=== PATIENT | male | born 1945 | race Caucasian/White ===

== ENCOUNTER 2025-06-07 08:33 | Observation (INO) | payer MEDICARE, OTHER ==
[2025-06-07 08:48] LABS: Actual Bicarbonate (HCO3a) 20.8 mEq/L (22-28); Analyzer IN Cardio ER; Base Excess (BEa) -8.0 mEq/L (-2.0 to +3.0); CO2 Tension 57.4 mmHg (35.0-45.0); Calcium, Ionized (arterial) 1.09 mmol/L (1.12-1.30); Hematocrit-ABG 38 % (42.0-52.0); Hemoglobin (Hb) 12.8 g/dL (14.0-18.0); O2 Tension (PaO2), arterial 94.5 mmHg (> 70.0); Potassium - ABG Lab 3.53 mmol/L (3.70-5.30)
[2025-06-07 08:50] LABS: ALV-art Gradient 118.950 mmHg (0-20); Puncture Site Right Radial artery; pH, Arterial 7.178 (7.35-7.45)
[2025-06-07] MEDS ORDERED: Sodium Bicarb 50 MEQ/50 ML Abboject 8.4% SYRINGE ONE (08:51)
[2025-06-07 09:18] LABS: Hematocrit 36.5 % (42.0-52.0); Hemoglobin 11.9 g/dL (14.0-18.0); Mean Corpuscular Hemoglobin 31.8 pg (27.0-31.0); Mean Corpuscular Volume 97.6 fL (78.0-98.0); Platelet Count 128 10x3/uL (130-400); Red Blood Cell (RBC) Count 3.74 mill/uL (4.70-6.10); White Blood Cell (WBC) Count 5.89 10x3/uL (4.8-10.8)
[2025-06-07 09:30] LABS: ALT (SGPT) 26 U/L (Less than 45); AST (SGOT) 30 U/L (11-34); Albumin 3.2 g/dL (3.1-4.5); Alkaline Phosphatase 96 U/L (40-110); Anion Gap 15 mmol/L (10-20); BUN (Urea Nitrogen) 20 mg/dL (8.4-25.7); Bilirubin, Total 0.3 mg/dL (0.3-1.2); Calc. Creatinine Clearance 0 mL/min (70-130); Calcium 7.5 mg/dL (7.8-10.44); Carbon Dioxide 20 mmol/L (23-31); Chloride 111 mmol/L (98-107); Globulin 2.5 g/dL (2.4-3.5); Glucose 205 mg/dL (83-110); Potassium 3.9 mmol/L (3.5-5.1); Sodium 142 mmol/L (136-145)
[2025-06-07 09:42] LABS: Anisocytosis SLIGHT = 6-15 cells HPF (0-5); Macrocytosis SLIGHT = 6-15 cells HPF (0-5); Ovalocytes SLIGHT = 2-5 cells HPF (0-1); Platelet Adequacy Comment Platelets Decreased
[2025-06-07 09:45] LABS: #Basophils 0.03 10x3/uL (0.0-0.2); #Eosinophils 0.35 10x3/uL (0.0-0.7); #Monocytes 0.53 10x3/uL (0.11-0.59); #Neutrophils 3.37 10x3/uL (1.40-6.50); %Basophils 0.5 % (0.0-1.0); %Eosinophils 5.9 % (0.0-10.0); %Lymphocytes 27.0 % (21.0-51.0); %Monocytes 9.0 % (0.0-10.0); %Neutrophils 57.3 % (42.0-75.0)
[2025-06-07] MEDS ORDERED: Ondansetron PF 4 MG/2 ML Vial IVP PRN (10:21)
[2025-06-07] MEDS ORDERED: Propofol BOLUS 1,000 MG/100 ML VIAL IV PRN (10:30)
[2025-06-07] MEDS ORDERED: Ventilator Sedation Protocol 1 EACH FS SCH (10:30)
[2025-06-07] MEDS ORDERED: DISCONTINUE PREVIOUS NARCOTIC PAIN MEDICATIONS AND BENZODIAZEPINES FS SCH (10:30)
[2025-06-07] MEDS ORDERED: Fentanyl BOLUS 100 ML IVPB PRN (10:30)
[2025-06-07] MEDS: Lidocaine 1% (PF) 30 ML VIAL FS SCH (11:30)
[2025-06-07 12:12] VITALS: BMI 24.3
[2025-06-07] MEDS: Lidocaine 1% (PF) 30 ML VIAL ONE (12:21)
[2025-06-07 14:55] LABS: Actual Bicarbonate (HCO3a) 23.6 mEq/L (22-28); Base Excess (BEa) -2.1 mEq/L (-2.0 to +3.0); CO2 Tension 43.8 mmHg (35.0-45.0); Calcium, Ionized (arterial) 1.11 mmol/L (1.12-1.30); Hematocrit-ABG 38 % (42.0-52.0); Hemoglobin (Hb) 12.9 g/dL (14.0-18.0); O2 Tension (PaO2), arterial 99.3 mmHg (> 70.0); Potassium - ABG Lab 3.78 mmol/L (3.70-5.30); pH, Arterial 7.349 (7.35-7.45)
[2025-06-07 15:30] LABS: ALV-art Gradient 131.150 mmHg (0-20); Puncture Site Right Radial artery
[2025-06-07 16:06] VITALS: TEMP 98.1
== END 2025-06-07 19:00 | disposition home or self-care (01) ==
LOC: ERS 08:33 → SUATTDRO 08:33 → CCU 10:23 → INTOOBSV 10:23
PROVIDERS: ADMIT Family Medicine; ATTEND Family Medicine
PROC: 0BJ08ZZ Inspection of Tracheobronchial Tree, Via Natural or Artificial Opening Endoscopic (ICD-10-PCS; principal; 2025-06-07)
DX: T17.828A Food in other parts of respiratory tract causing other injury, initial encounter (principal); I10 Essential (primary) hypertension; E87.29 Other acidosis; K22.2 Esophageal obstruction; D69.6 Thrombocytopenia, unspecified; G51.0 Bell's palsy; G47.00 Insomnia, unspecified; R73.9 Hyperglycemia, unspecified; Z87.891 Personal history of nicotine dependence; Z79.899 Other long term (current) drug therapy; W44.F3XA Food entering into or through a natural orifice, initial encounter
CPT/HCPCS: 31622; 36600; 51702; 71045; 80053; 82805; 83036; 83605; 84484 ×2; 85025; 93005; 94002; 94640 ×2; 96365; 96375; 96376 ×2; 99285; G0378 ×2; J2250; J2704; J7120; J7620